=== PATIENT | female | born 1980 | race Caucasian/White ===

== ENCOUNTER 2019-07-01 20:51 | Emergency (ER) | payer MEDICAID ==
[~2019-07-01] VITALS: Ht 165.1 cm; Wt 72.0 kg
[2019-07-02] MEDS ORDERED: ACETAMINOPHEN 325MG TABLET PO ONE ×2 (01:30→10:45)
[2019-07-02 12:00] VITALS: BP 110/70
== END 2019-07-02 13:52 | disposition home or self-care (01) ==
LOC: ER 20:51 → EDBD 20:51 → ER 07-02 13:52
DX: M79.674 Pain in right toe(s) (principal); Z59.0 Homelessness; E11.9 Type 2 diabetes mellitus without complications; I10 Essential (primary) hypertension; F32.9 Major depressive disorder, single episode, unspecified; Z88.0 Allergy status to penicillin
CPT/HCPCS: 81025; 99283

== ENCOUNTER 2019-07-07 08:50 | Inpatient (IN) | payer MEDICAID ==
[~2019-07-07] VITALS: Ht 152.4 cm; Wt 54.9 kg
[2019-07-07] MEDS ORDERED: MORPHINE SULFATE 4 MG/ML CPJ (NOT FOR IM USE) IV STA (09:46)
[2019-07-07] MEDS ORDERED: ACETAMINOPHEN 325MG TABLET PO STA (09:46)
[2019-07-07] MEDS ORDERED: SODIUM CHLORIDE 0.9% 1000ML BAG (SEPSIS BOLUS) IV ONE (10:00)
[2019-07-07 10:12] LABS: BASOPHILS % 0.2 % (0.0-2.0); HEMATOCRIT. 39.3 % (36.0-48.0); HEMOGLOBIN. 13.4 g/dL (12.0-16.0); LYMPHOCYTES % 7.5 % (20.0-50.0); MEAN CORPUSCULAR HEMOGLOBIN 32.6 pg (28.0-32.0); MEAN CORPUSCULAR VOLUME 95.3 fL (81.0-99.0); MEAN PLATELET VOLUME 8.3 fl (7.4-10.4); NEUTROPHILS % 82.3 % (40.0-76.0); PLATELET 232 x1000/uL (130-400); RED BLOOD CELL COUNT 4.12 mill/uL (4.2-5.4); RED CELL DISTRIBUTION WIDTH 12.5 % (11.6-14.6)
[2019-07-07 10:15] LABS: CLARITY URINE CLOUDY (CLEAR); COLOR URINE YELLOW (YELLOW); KETONES URINE TRACE (NEGATIVE); LEUKOCYTE ESTERASE URINE 2+ (NEGATIVE); NITRITE URINE NEGATIVE (NEGATIVE); OCCULT BLOOD URINE 1+ (NEGATIVE); PROTEIN URINE 2+ (NEGATIVE); SPECIFIC GRAVITY URINE 1.011 (1.005-1.030)
[2019-07-07 10:17] LABS: CHLORIDE 98 mEq/L (98-107)
[2019-07-07 10:28] LABS: INR 1.2
[2019-07-07] MEDS ORDERED: LEVOFLOXACIN 750MG PREMIX 150 ML IV ONE (11:45)
[2019-07-07] MEDS ORDERED: KETOROLAC 30MG/ML VIAL IV ONE (12:15)
[2019-07-07] MEDS ORDERED: MORPHINE SULFATE 2 MG/ML CPJ (NOT FOR IM USE) IV ONE (18:00)
[2019-07-07] MEDS ORDERED: CLONIDINE 0.1MG TABLET PO PRN (20:30)
[2019-07-07] MEDS ORDERED: DIPHENHYDRAMINE 50MG/ML VIAL IV PRN (20:30)
[2019-07-07] MEDS ORDERED: ACETAMINOPHEN 325MG TABLET PO PRN (20:30)
[2019-07-07] MEDS ORDERED: ONDANSETRON HCL 4MG/2ML INJ IV PRN (20:30)
[2019-07-07] MEDS ORDERED: POTASSIUM CHLORIDE INJ 40 MEQ in DEXT 5% WATER 250 ML IV NR (21:30)
[2019-07-07 22:00] VITALS: BP 117/70
[2019-07-07] MEDS: FAMOTIDINE 20MG TABLET PO SCH (23:11)
[2019-07-07] MEDS: SODIUM CHLORIDE 0.9% 1,000 ML IV SCH (23:13)
[2019-07-08] VITALS: BP 117/70
[2019-07-08] MEDS ORDERED: KETOROLAC 30MG/ML VIAL IV PRN (00:15)
[2019-07-08] MEDS ORDERED: POTASSIUM CHLORIDE 20MEQ TABLET SR PO NR (01:00)
[2019-07-08 01:06] LABS: T4 FREE 0.99 ng/dL (0.76-1.46)
[2019-07-08] MEDS: OLANZAPINE 10MG TABLET PO SCH ×2 (01:14→21:38)
[2019-07-08] MEDS ORDERED: HALOPERIDOL LACTATE 5MG/ML VIAL IM PRN (01:30)
[2019-07-08 04:00] VITALS: BP 98/58
[2019-07-08 06:00] LABS: UCG SCREEN NEGATIVE
[2019-07-08 06:10] LABS: *BARBITURATES SCREEN URINE NEGATIVE (NEGATIVE); *BENZODIAZEPINES SCREEN URINE NEGATIVE (NEGATIVE)
[2019-07-08 06:11] LABS: *AMPHETAMINES SCREEN URINE NEGATIVE (NEGATIVE); *COCAINE SCREEN URINE NEGATIVE (NEGATIVE); CANNABINOID URINE SCREEN NEGATIVE (NEGATIVE); METHADONE URINE SCREEN NEGATIVE (NEGATIVE); PHENCYCLIDINE URINE SCREEN NEGATIVE (NEGATIVE)
[2019-07-08 06:16] LABS: OPIATES URINE SCREEN PRESUMTIVE POSITIVE (NEGATIVE)
[2019-07-08 06:53] LABS: BASOPHILS % 0.4 % (0.0-2.0); EOSINOPHILS % 0.3 % (0.0-5.0); HEMATOCRIT. 36.7 % (36.0-48.0); HEMOGLOBIN. 12.6 g/dL (12.0-16.0); LYMPHOCYTES % 11.1 % (20.0-50.0); MEAN CORPUSCULAR HEMOGLOBIN 33.1 pg (28.0-32.0); MEAN CORPUSCULAR VOLUME 96.2 fL (81.0-99.0); MEAN PLATELET VOLUME 8.6 fl (7.4-10.4); NEUTROPHILS % 74.2 % (40.0-76.0); PLATELET 191 x1000/uL (130-400); RED BLOOD CELL COUNT 3.82 mill/uL (4.2-5.4); RED CELL DISTRIBUTION WIDTH 12.8 % (11.6-14.6)
[2019-07-08 07:47] LABS: CHLORIDE 109 mEq/L (98-107)
[2019-07-08] MEDS ORDERED: INFLUENZA VIRUS VACCINE(AFLURIA) 0.5ML SYR IM ONE (10:00)
[2019-07-08] MEDS: LORAZEPAM 2MG/ML CPJ IV PRN ×2 (11:51→18:56)
[2019-07-08] MEDS ORDERED: LEVOFLOXACIN 500MG PREMIX 100 ML IV SCH (12:00)
[2019-07-08] MEDS: IBUPROFEN 600MG TABLET PO PRN ×2 (12:09→18:57)
[2019-07-08] MEDS: CALCIUM CARBONATE/VITAMIN D3 500MG TABLET PO SCH (18:26)
[2019-07-08 20:00] VITALS: BP 114/61
[2019-07-08] MEDS: FAMOTIDINE 20MG TABLET PO SCH (21:38)
[2019-07-09] VITALS: BP 105/51
[2019-07-09 04:00] VITALS: BP 100/54
[2019-07-09 08:00] VITALS: BP 100/58
[2019-07-09] MEDS: CALCIUM CARBONATE/VITAMIN D3 500MG TABLET PO SCH ×2 (09:19→16:14)
[2019-07-09 12:00] VITALS: BP 110/69
[2019-07-09] MEDS: IBUPROFEN 600MG TABLET PO PRN ×2 (12:17→21:37)
[2019-07-09] MEDS ORDERED: DIPHENHYDRAMINE 50MG/ML VIAL IV PRN (12:45)
[2019-07-09] MEDS ORDERED: ONDANSETRON HCL 4MG/2ML INJ IV PRN (12:45)
[2019-07-09] MEDS ORDERED: ACETAMINOPHEN 325MG TABLET PO PRN (12:45)
[2019-07-09] MEDS ORDERED: CLONIDINE 0.1MG TABLET PO PRN (12:45)
[2019-07-09] MEDS ORDERED: HALOPERIDOL LACTATE 5MG/ML VIAL IM PRN (12:45)
[2019-07-09] MEDS: LEVOFLOXACIN 500MG PREMIX 100 ML IV SCH (13:18)
[2019-07-09] MEDS: SODIUM CHLORIDE 0.9% 1,000 ML IV SCH (14:10)
[2019-07-09] MEDS: KETOROLAC 30MG/ML VIAL IV PRN (15:04)
[2019-07-09 16:00] VITALS: BP 98/60
[2019-07-09] MEDS: LORAZEPAM 2MG/ML CPJ IV PRN (16:26)
[2019-07-09 20:00] VITALS: BP 113/74
[2019-07-09] MEDS ORDERED: FAMOTIDINE 20MG TABLET PO SCH (21:00)
[2019-07-09] MEDS: OLANZAPINE 10MG TABLET PO SCH (21:30)
[2019-07-10] MEDS: LORAZEPAM 2MG/ML CPJ IV PRN ×2 (00:27→12:08)
[2019-07-10 00:47] VITALS: BP_SYST 93; BP_SYST 94; BP_DIAS 52; BP_DIAS 56
[2019-07-10 04:00] VITALS: BP 106/63
[2019-07-10 08:00] VITALS: BP 97/67
[2019-07-10] MEDS: CALCIUM CARBONATE/VITAMIN D3 500MG TABLET PO SCH ×2 (08:41→17:03)
[2019-07-10 12:00] VITALS: BP 95/50
[2019-07-10] MEDS: KETOROLAC 30MG/ML VIAL IV PRN (12:09)
[2019-07-10] MEDS: LEVOFLOXACIN 500MG PREMIX 100 ML IV SCH (12:33)
[2019-07-10 16:00] VITALS: BP 102/61
[2019-07-10] MEDS: IBUPROFEN 600MG TABLET PO PRN ×2 (17:02→23:02)
[2019-07-10] MEDS: LORAZEPAM 1MG TABLET PO PRN ×2 (17:02→22:59)
[2019-07-10 20:00] VITALS: BP_SYST 135; BP_SYST 154; BP_DIAS 71
[2019-07-10] MEDS: OLANZAPINE 10MG TABLET PO SCH (21:27)
[2019-07-11] VITALS: BP 101/68
[2019-07-11 04:00] VITALS: BP 99/58
[2019-07-11 08:00] VITALS: BP 96/60
[2019-07-11] MEDS: CALCIUM CARBONATE/VITAMIN D3 500MG TABLET PO SCH ×2 (09:25→17:21)
[2019-07-11] MEDS: LEVOFLOXACIN 500MG TABLET PO SCH (10:47)
[2019-07-11] MEDS: IBUPROFEN 600MG TABLET PO PRN ×2 (10:47→17:22)
[2019-07-11 12:00] VITALS: BP 92/53
[2019-07-11] MEDS: LORAZEPAM 1MG TABLET PO PRN ×2 (13:57→23:44)
[2019-07-11 16:00] VITALS: BP 108/64
[2019-07-11 20:00] VITALS: BP 120/78
[2019-07-11] MEDS: OLANZAPINE 10MG TABLET PO SCH (20:51)
[2019-07-12] VITALS: BP_SYST 110; BP_SYST 122; BP_DIAS 66; BP_DIAS 79
[2019-07-12 04:00] VITALS: BP 122/76
[2019-07-12 07:59] LABS: BASOPHILS % 0.4 % (0.0-2.0); EOSINOPHILS % 2.2 % (0.0-5.0); HEMATOCRIT. 37.4 % (36.0-48.0); HEMOGLOBIN. 12.9 g/dL (12.0-16.0); LYMPHOCYTES % 17.6 % (20.0-50.0); MEAN CORPUSCULAR HEMOGLOBIN 32.7 pg (28.0-32.0); MEAN CORPUSCULAR VOLUME 95.2 fL (81.0-99.0); NEUTROPHILS % 70.8 % (40.0-76.0); PLATELET 405 x1000/uL (130-400); RED BLOOD CELL COUNT 3.93 mill/uL (4.2-5.4); RED CELL DISTRIBUTION WIDTH 12.9 % (11.6-14.6)
[2019-07-12 08:00] VITALS: BP 121/64
[2019-07-12 08:10] LABS: CHLORIDE 101 mEq/L (98-107)
[2019-07-12 08:17] LABS: PHOSPHORUS 4.7 mg/dL (2.5-4.9)
[2019-07-12] MEDS: CALCIUM CARBONATE/VITAMIN D3 500MG TABLET PO SCH ×2 (08:24→17:06)
[2019-07-12] MEDS: LORAZEPAM 1MG TABLET PO PRN ×3 (08:40→21:14)
[2019-07-12] MEDS: LEVOFLOXACIN 500MG TABLET PO SCH (11:50)
[2019-07-12 12:00] VITALS: BP 108/68
[2019-07-12 16:00] VITALS: BP 112/60
[2019-07-12 20:00] VITALS: BP 100/64
[2019-07-12] MEDS: OLANZAPINE 10MG TABLET PO SCH (21:13)
[2019-07-12] MEDS: IBUPROFEN 600MG TABLET PO PRN (21:13)
[2019-07-13] VITALS: BP 95/53
[2019-07-13 04:00] VITALS: BP 98/51
[2019-07-13 08:00] VITALS: BP 90/55
[2019-07-13] MEDS: CALCIUM CARBONATE/VITAMIN D3 500MG TABLET PO SCH ×2 (08:37→17:48)
[2019-07-13] MEDS: LORAZEPAM 1MG TABLET PO PRN ×3 (08:41→20:44)
[2019-07-13 12:00] VITALS: BP 93/56
[2019-07-13] MEDS: LEVOFLOXACIN 500MG TABLET PO SCH (12:09)
[2019-07-13 16:00] VITALS: BP 99/64
[2019-07-13 20:00] VITALS: BP 99/59
[2019-07-13] MEDS: OLANZAPINE 10MG TABLET PO SCH (20:43)
[2019-07-13] MEDS: IBUPROFEN 600MG TABLET PO PRN (20:43)
[2019-07-14] VITALS: BP 99/61
[2019-07-14 04:00] VITALS: BP 101/61
[2019-07-14 08:00] VITALS: BP 97/56
[2019-07-14] MEDS: CALCIUM CARBONATE/VITAMIN D3 500MG TABLET PO SCH ×2 (08:50→16:28)
[2019-07-14] MEDS: LORAZEPAM 1MG TABLET PO PRN ×3 (09:16→22:58)
[2019-07-14] MEDS: LEVOFLOXACIN 500MG TABLET PO SCH (11:34)
[2019-07-14 12:00] VITALS: BP 103/59
[2019-07-14 20:00] VITALS: BP 124/68
[2019-07-14] MEDS: OLANZAPINE 10MG TABLET PO SCH (20:33)
[2019-07-15] MEDS: CALCIUM CARBONATE/VITAMIN D3 500MG TABLET PO SCH ×2 (08:30→17:27)
[2019-07-15] MEDS: LORAZEPAM 1MG TABLET PO PRN ×2 (08:33→18:02)
[2019-07-15 12:00] VITALS: BP 102/55
[2019-07-15 16:00] VITALS: BP 110/65
[2019-07-15] MEDS: IBUPROFEN 600MG TABLET PO PRN (16:12)
[2019-07-15 20:00] VITALS: BP 107/69
[2019-07-15] MEDS: OLANZAPINE 10MG TABLET PO SCH (21:04)
[2019-07-16] VITALS (7 sets, daily range): BP systolic 97–122; BP diastolic 60–65
[2019-07-16] MEDS: CALCIUM CARBONATE/VITAMIN D3 500MG TABLET PO SCH ×2 (08:31→16:38)
[2019-07-16] MEDS: LORAZEPAM 1MG TABLET PO PRN ×3 (08:39→20:46)
[2019-07-16] MEDS: OLANZAPINE 10MG TABLET PO SCH (20:46)
[2019-07-16] MEDS: IBUPROFEN 600MG TABLET PO PRN (21:15)
== END 2019-07-16 21:05 | DRG 720 ==
LOC: ER 09:06 → 6EST 12:07 → ENRESERV 18:34 → 6EST 07-08 00:52 → UNDODISIN 07-09 07:20
PROVIDERS: ADMIT Internal Medicine; ATTEND Internal Medicine
DX: A41.9 Sepsis, unspecified organism (principal); E87.1 Hypo-osmolality and hyponatremia; N39.0 Urinary tract infection, site not specified; E11.9 Type 2 diabetes mellitus without complications; F41.9 Anxiety disorder, unspecified; I10 Essential (primary) hypertension; E87.6 Hypokalemia; F23 Brief psychotic disorder; Z59.0 Homelessness; Z86.32 Personal history of gestational diabetes; Z88.0 Allergy status to penicillin; Z98.891 History of uterine scar from previous surgery
CPT/HCPCS: 36415; 71045; 80048; 80305; 81003; 81025; 82962; 83605; 83735; 84100; 84145; 84439; 84443; 84484; 86592; 87070; 87077; 87106; 87186; 93005; 99285; C1893; J1885; J1956; J2060; J2270; J3480; J7030; J7060